=== PATIENT | male | born 1970 | race Two or more races ===

== ENCOUNTER 2025-02-08 15:15 | Inpatient (IN) | payer MEDICAID ==
[~2025-02-08] VITALS: Ht 162.6 cm; Wt 61.7 kg
[2025-02-08 16:21] LABS: ALCOHOL, BLOOD < 3 mg/dL (0-10); ASPARTATE AMINOTRANSFERASE 22 U/L (15-37); CALCIUM, SERUM 9.0 mg/dL (8.5-10.1); CREATININE 0.9 mg/dL (0.6-1.3); SODIUM SERUM 142 mmol/L (136-145); TOTAL PROTEIN, SERUM 8.0 g/dL (6.4-8.2); UREA NITROGEN, BLOOD 31 mg/dL (7-18)
[2025-02-08] MEDS: OLANZAPINE 10 MG VIAL IM ONE (16:30)
[2025-02-08 16:36] LABS: PLATELET COUNT (AUTO) 286 K/uL (150-450); RED BLOOD CELL COUNT(AUTO) 5.62 MIL/uL (4.5-6.0); RED CELL DISTRIBUTION WIDTH 13.2 % (11.5-15.0); WHITE BLOOD COUNT (AUTO) 16.1 K/uL (4.3-11.0)
[2025-02-08] MEDS: IV NS 0.9% 1,000 ML BAG IV ONE ×2 (16:50→19:36)
[2025-02-08] MEDS: CEFEPIME 2 GM in IV D5W 100 ML IV SCH (17:05)
[2025-02-08 17:35] LABS: APPEARANCE,URINE SLIGHTLY CLOUDY (CLEAR); BLOOD, URINE TRACE-INTA Ery/uL (NEGATIVE); LEUKOCYTE ESTERASE ,URINE NEGATIVE (NEGATIVE); NITRITE, URINE NEGATIVE (NEGATIVE); UGLUCOSE NEGATIVE (NEGATIVE)
[2025-02-08] MEDS: VANCOMYCIN 1 GM in IV D5W 250 ML IV ONE (17:40)
[2025-02-08 17:44] LABS: ADD URINE CULTURE YES; FINE GRANULAR CASTS,URINE Few /LPF (None Seen); HYALINE CASTS, URINE Few /LPF (None Seen); SQUAMOUS EPITHELIAL CELL,UR Few /HPF (None Seen)
[2025-02-08 17:45] LABS: OTHER CASTS, URINE MIXED CELL CASTS 1+ /LPF (None Seen)
[2025-02-08 17:51] LABS: AMPHETAMINE, URINE NEGATIVE (NEGATIVE); BARBITURATE, URINE NEGATIVE (NEGATIVE); BENZODIAZEPINE, URINE NEGATIVE (NEGATIVE); CANNABINOID, URINE NEGATIVE (NEGATIVE); COCCAINE, URINE NEGATIVE (NEGATIVE); OPIATE, URINE NEGATIVE (NEGATIVE)
[2025-02-08] MEDS ORDERED: TETR25TA2 PO (19:08)
[2025-02-08] MEDS ORDERED: OLAN20TA3 PO (19:08)
[2025-02-08] MEDS ORDERED: ACET-868 PO (19:08)
[2025-02-08] MEDS ORDERED: MULT-213 PO (19:08)
[2025-02-08] MEDS ORDERED: NA P133E RC (19:08)
[2025-02-08] MEDS ORDERED: TRAZ-182 PO (19:08)
[2025-02-08] MEDS ORDERED: THIA100T70 PO (19:08)
[2025-02-08] MEDS ORDERED: DIVA-76 PO (19:08)
[2025-02-08] MEDS ORDERED: MAGN400O6 PO (19:08)
[2025-02-08] MEDS ORDERED: QUET50TA PO (19:08)
[2025-02-08] MEDS ORDERED: LACT10SO58 PO (19:08)
[2025-02-08] MEDS ORDERED: HALO5AMP3 IM (19:08)
[2025-02-08] MEDS ORDERED: FOLI0.4T6 PO (19:08)
[2025-02-08] MEDS ORDERED: HALO5TAB8 PO (19:08)
[2025-02-08] MEDS ORDERED: GABA300C PO (19:08)
[2025-02-08] MEDS ORDERED: DOSING PER PHARMACY-VANCOMYCIN IV XX PRN (20:30)
[2025-02-08] MEDS ORDERED: MAGNESIUM HYDROXIDE 30 ML UDC PO PRN ×2 (20:30→21:00)
[2025-02-08] MEDS: ENOXAPARIN SODIUM 40 MG/0.4 ML DISP.SYRIN SQ SCH (20:30)
[2025-02-08] MEDS ORDERED: ONDANSETRON HCL/PF 4 MG/2 ML VIAL IVP PRN (20:30)
[2025-02-08] MEDS ORDERED: MAG HYDROX/AL HYDROX/SIMETH 30 ML UDC PO PRN (20:30)
[2025-02-08] MEDS ORDERED: ACETAMINOPHEN 325 MG TABLET PO PRN (20:30)
[2025-02-08] MEDS ORDERED: HALOPERIDOL LACTATE INJ 5 MG/ML VIAL IM PRN (21:00)
[2025-02-08] MEDS: OLANZAPINE 10 MG TABLET PO SCH (22:00)
[2025-02-08] MEDS: TRAZODONE 50 MG TABLET PO SCH (22:00)
[2025-02-08] MEDS: IV D5/0.45 NACL 1,000 ML IV SCH (22:22)
[2025-02-09] MEDS ORDERED: VANCOMYCIN 1 GM /D5W 250 ML PB IV ONE (00:44)
[2025-02-09] MEDS: VANCOMYCIN 750 MG in IV D5W 250 ML IV SCH (00:52)
[2025-02-09] MEDS ORDERED: CEFEPIME 2 GM in IV D5W 100 ML IV SCH (01:00)
[2025-02-09] MEDS ORDERED: CEFEPIME 1 GM VIAL ONE ×2 (01:56→02:06)
[2025-02-09] MEDS: CEFEPIME 2 GM in IV D5W 100 ML IV SCH ×2 (02:10→13:31)
[2025-02-09 04:00] VITALS: BP 146/77; TEMP 98.2; O2SAT 99
[2025-02-09 07:00] VITALS: BP 128/62; O2SAT 95
[2025-02-09 07:13] LABS: PLATELET COUNT (AUTO) 234 K/uL (150-450); RED BLOOD CELL COUNT(AUTO) 4.70 MIL/uL (4.5-6.0); RED CELL DISTRIBUTION WIDTH 13.0 % (11.5-15.0); WHITE BLOOD COUNT (AUTO) 12.5 K/uL (4.3-11.0)
[2025-02-09 07:36] LABS: CALCIUM, SERUM 8.5 mg/dL (8.5-10.1); CREATININE 0.7 mg/dL (0.6-1.3); PHOSPHORUS 2.5 mg/dL (2.5-4.9); SODIUM SERUM 143.0 mmol/L (136-145); UREA NITROGEN, BLOOD 20.0 mg/dL (7-18)
[2025-02-09] MEDS ORDERED: TETRABENAZINE 25 MG PO SCH (09:00)
[2025-02-09] MEDS: LACTULOSE 10 G/15 ML UDC (PYXIS) PO SCH (09:00)
[2025-02-09] MEDS: MULTIVIT W/MINERALS 1 TAB TABLET PO SCH (09:00)
[2025-02-09] MEDS: DIVALPROEX SODIUM 250 MG TABLET.DR PO SCH (09:00)
[2025-02-09] MEDS: GABAPENTIN 300 MG CAPSULE PO SCH (09:00)
[2025-02-09] MEDS: FOLIC ACID 1 MG TABLET PO SCH (09:00)
[2025-02-09] MEDS: THIAMINE HCL 100 MG TABLET PO SCH (09:00)
[2025-02-09] MEDS: QUETIAPINE FUMARATE 25 MG TABLET PO SCH (09:00)
[2025-02-09] MEDS: HALOPERIDOL 5 MG TABLET PO SCH (09:00)
[2025-02-09] MEDS: PANTOPRAZOLE 40 MG VIAL IV SCH (09:03)
[2025-02-09] MEDS: POTASSIUM CL. PREMIX PERIPHER. 50 ML IV SCH (11:11)
[2025-02-09] MEDS: VANCOMYCIN HCL 1.25 GM in IV D5W 250 ML IV SCH (18:13)
[2025-02-09 21:00] VITALS: TEMP 98.7
[2025-02-10 07:26] LABS: PLATELET COUNT (AUTO) 227 K/uL (150-450); RED BLOOD CELL COUNT(AUTO) 4.93 MIL/uL (4.5-6.0); RED CELL DISTRIBUTION WIDTH 12.7 % (11.5-15.0); WHITE BLOOD COUNT (AUTO) 9.3 K/uL (4.3-11.0)
[2025-02-10 07:49] LABS: CALCIUM, SERUM 8.2 mg/dL (8.5-10.1); CREATININE 0.6 mg/dL (0.6-1.3); PHOSPHORUS 2.7 mg/dL (2.5-4.9); SODIUM SERUM 139.0 mmol/L (136-145); UREA NITROGEN, BLOOD 8.0 mg/dL (7-18)
[2025-02-10] MEDS ORDERED: LEVOFLOXACIN (250MG) 250 MG TABLET PO SCH (09:00)
[2025-02-10] MEDS: POTASSIUM CL. PREMIX PERIPHER. 50 ML IV SCH (10:49)
[2025-02-10] MEDS: LEVOFLOXACIN 500 MG /D5W 100ML 500 MG in PREMIX 1 EA IV SCH (11:44)
[2025-02-10 20:00] VITALS: BP 135/81; TEMP 98.7; O2SAT 95
[2025-02-11 07:17] LABS: PLATELET COUNT (AUTO) 226 K/uL (150-450); RED BLOOD CELL COUNT(AUTO) 5.02 MIL/uL (4.5-6.0); RED CELL DISTRIBUTION WIDTH 12.6 % (11.5-15.0); WHITE BLOOD COUNT (AUTO) 8.5 K/uL (4.3-11.0)
[2025-02-11] MEDS ORDERED: Z GUARD REMEDY 4 OZ OINT TP PRN (07:30)
[2025-02-11 07:46] LABS: PHOSPHORUS 3.3 mg/dL (2.5-4.9)
[2025-02-11 07:46] LABS: CALCIUM, SERUM 8.8 mg/dL (8.5-10.1); CREATININE 0.7 mg/dL (0.6-1.3); SODIUM SERUM 144.0 mmol/L (136-145); UREA NITROGEN, BLOOD 9.0 mg/dL (7-18)
[2025-02-11 08:00] VITALS: BP 132/65; TEMP 98.2; O2SAT 99
[2025-02-11] MEDS: Z GUARD REMEDY 4 OZ OINT TP SCH (09:08)
[2025-02-11] MEDS: POTASSIUM CHLORIDE 20 MEQ POWDER PACKET PO ONE (10:46)
[2025-02-11] MEDS: DIVALPROEX SODIUM 250 MG TABLET.DR PO SCH (12:43)
[2025-02-11 14:36] VITALS: BP 130/88; TEMP 98.7; O2SAT 95
[2025-02-11] MEDS ORDERED: DIVA500T2 PO (14:38)
[2025-02-11 16:00] VITALS: BP 102/60; TEMP 98.6; O2SAT 96
[2025-02-11 18:30] VITALS: BP 123/79; TEMP 98.6; O2SAT 96
[2025-02-12] MEDS ORDERED: PANTOPRAZOLE 40 MG TABLET.DR PO SCH (09:00)
== END 2025-02-11 20:20 | disposition hospice, inpatient (51) | DRG 422 ==
LOC: ER 15:21 → MED 20:11 → TELE 02-09 06:07 → MED 02-11 16:50
PROVIDERS: ATTEND Nurse Practitioner Family
DX: E86.0 Dehydration (principal); G10 Huntington's disease; R65.10 Systemic inflammatory response syndrome (SIRS) of non-infectious origin without acute organ dysfunction; R79.89 Other specified abnormal findings of blood chemistry; R45.850 Homicidal ideations; F20.9 Schizophrenia, unspecified; F31.9 Bipolar disorder, unspecified; Z51.5 Encounter for palliative care; Z66 Do not resuscitate; Z91.148 Patient's other noncompliance with medication regimen for other reason; Z79.899 Other long term (current) drug therapy; B96.89 Other specified bacterial agents as the cause of diseases classified elsewhere; G31.84 Mild cognitive impairment of uncertain or unknown etiology
CPT/HCPCS: 36415; 71045-TC; 80048-TC; 80076-TC; 80202-TC; 81001; 83605-TC; 83735-TC; 84100-TC; 85025-TC; 87040-TC; 87086-TC; 92526; 92611; 97112-TC; 97116-TC; 97530-TC; A4216; A4223; G0378; G0480; J0692; J1650; J1956; J2470; J3373; J3374; J3480; J3490; J7030; J7050; J7060